=== PATIENT | female | born 2000 | race Caucasian/White ===

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

== ENCOUNTER 2023-03-27 09:36 | Emergency (ER) | payer OTHER, SELFPAY ==
[2023-03-27 09:37] VITALS: BP 136/59; PULSE 113; RESP 14; TEMP 35.7; O2SAT 98
--- NOTE | 2023-03-27 09:47 | EDS_ITS ---
HPI History of Present Illness Chief Complaint: Abscess Detail of Chief Complaint: Tailbone abscess Informant: patient Narrative Narrative: Patient presents to the emergency department with complaint of possible abscess to her tailbone. Patient states that she developed a lump to her tailbone area about 5 days ago. Patient was seen in urgent care yesterday and had a incision and drainage and she had good pain relief with that. Patient also started on Bactrim. Now having more discomfort. She had a fever up to 101 yesterday. Patient also had some chills yesterday. No prior history of abscesses. PFSH PFSH Medical History no medical history Home Medications cephalexin 500 mg capsule 500 mg PO Q6 #40 CAPSULES 03/27/23 [Rx Last Taken Unknown] Allergy/AdvReac Type Severity Reaction Status Date / Time No Known Allergies Allergy Verified 03/27/23 09:37 Family History no significant family his Surgical History no surgical history Social History Smoking Status: Never smoker ROS ROS ED Review of Systems ROS Unobtainable: other Constitutional Constitutional ED: Reports lethargy; Denies chills, fever(s), sweats or weight loss Eyes Eyes: Denies blurry vision, change in vision or diplopia ENT ENT ED: Denies rhinorrhea or sore throat Cardiovascular Cardiovascular: Denies chest pain, orthopnea or racing heartbeat Respiratory/Chest Respiratory/Chest: Denies cough, dyspnea, dyspnea on exertion, orthopnea or sputum Gastrointestinal Gastrointestinal: Denies abdominal pain, diarrhea, nausea or vomiting Genitourinary Genitourinary ED: Denies dysuria, hematuria or urinary frequency Musculoskeletal Musculoskeletal: Denies arthralgias, back pain, myalgias or neck pain Integumentary Reports abscess; Denies Abrasions or rash Neurologic Neurologic: Denies headache(s) or weakness Psychiatric Psychiatric: Denies anxiety, depression or suicidal thoughts Endocrine Endocrinology: Denies polydipsia, polyphagia or polyuria Hematologic/Lymphatic Hematologic/Lymphatic: Denies easy bleeding, easy bruising or lymphadenopathy Allergic/Immunologic Allergic/Immunologic ED: Denies mouth swelling, tongue swelling or urticaria EXAM Physical Exam Const Vital Signs: 03/27/23 09:37 Temperature 96.2 F L Temperature Source Temporal Pulse Rate 113 H Respiratory Rate 14 Blood Pressure 136/59 H Blood Pressure Mean 84 Pulse Ox 98 Oxygen Delivery Method Room Air Positive well nourished and well developed General Appearance ED: well developed and NAD HEENT Reports TM's clear and moist mucous membranes normocephalic and atraumatic; Negative for trauma or tenderness Tympanic Membrane ED: Yes TM's clear Eyes PERRL and EOMs intact bilaterally General Eye ED: Negative for pale conjunctiva or scleral icterus Neck no lymphadenopathy, supple and no JVD General: Negative for tenderness Chest Wall inspection of chest normal and palpation of chest normal Chest: Negative for tenderness Resp normal respiratory effort and clear to auscultation bilaterally Effort and Inspection: Negative for respiratory distress or pain with movement Auscultation: Negative for rhonchi, wheezes or diminished lung sounds Cardio regular rate, regular rhythm, S1 normal heart sound, S2 normal heart sound and no murmurs Peripheral Pulses: pulses 2+ throughout GI normal to inspection, nondistended, normoactive bowel sounds, soft to palpation, non-tender, non-distended and no masses Back/Spine no CVA tenderness and no thoracic nor lumbar tenderness Back/Spine Narrative: Evaluation of patient's tailbone reveals a area of soft tissue swelling with some faint erythema. I do not appreciate any significant incision from I&D. There is no significant cellulitic changes noted. Extremity normal to inspection General Extremety ED: Negative for edema General Extremity: Negative for edema Neuro oriented x3, CN's II-XII intact bilaterally, no sensory deficits noted and gait normal Sensorium / Orientation: awake, alert, oriented to person, oriented to place and oriented to time Motor Exam: strength 5/5 throughout and strength abnormal Psych mental status grossly normal Skin no rashes or lesions noted and no wounds MDM MDM MDM Narrative Medical decision making narrative: Patient presents with suspected abscess over tailbone consistent with pilonidal cyst. I recommended repeat incision and drainage. Patient in agreement she gave verbal consent. Patient's mother was in the room with her. Please see procedure note. The area was sterilely draped and prepped and anesthetized with 1% lidocaine and incision was made into the fluctuant portion of the suspected abscess and large amount of copious free-flowing purulent debris that was foul- smelling was expressed. Wound was irrigated with saline. Patient Toller procedure well. Patient was started on Keflex. She is to continue with her Bactrim as well. Patient will be referred to Dr. Bustos general surgeon for follow-up if symptoms persist or worsen. I explained that if the abscess recurs she may need further surgical intervention to completely excise the cyst. Procedures Other Procedures Procedure(s): Patient with incision and drainage of tailbone abscess/pilonidal cyst. Area sterilely draped and prepped. Anesthetized locally with 1% lidocaine total of 2 cc. An 11 blade was used to make a 2 cm incision over the most fluctuant portion. Large amount of free-flowing purulent debris expressed. Cavity irrigated with saline. Patient tolerated procedure well. Discharge Plan Triage Chief Complaint: Abscess ED Provider: Zohra Lacy Dx/Rx/DC Orders Clinical Impression: Pilonidal cyst, Abscess Instructions: ED Cyst Pilonidal Infected IandD Prescriptions: New cephalexin [cephalexin] 500 mg capsule 500 mg PO Q6 Qty: 40 0RF Referrals: Rodger Bustos MD [Med Staff - Active Staff] - 3-5 Days Disposition Disposition: Home, Self Care
[2023-03-27] MEDS: Lidocaine 1% (20 ml mdv) 20 ML Vial INFILT (10:00)
[2023-03-27 10:04] VITALS: BMI 32.8
[2023-03-27] MEDS: Cephalexin 250 MG Capsule 500 MG PO (10:55)
== END 2023-03-27 10:57 | disposition home or self-care (01) ==
LOC: ED 10:15
PROVIDERS: Emergency Provider Emergency Medicine; PCP Registered Nurse; Visit Provider Emergency Medicine
DX: L05.91 Pilonidal cyst without abscess (principal)
CPT/HCPCS: 10060; 99283

== ENCOUNTER → 2023-03-30 | Outpatient (CLI) | payer OTHER, SELFPAY | END | disposition home or self-care (01) | PROVIDERS: PCP Registered Nurse; Referring Provider Surgery; Visit Provider Surgery | DX: L05.91 Pilonidal cyst without abscess (principal); L02.91 Cutaneous abscess, unspecified | CPT/HCPCS: 87070; 87075; 87205 ==